=== PATIENT | male | born 1975 | race African-American/Black ===

== ENCOUNTER 2017-01-02 19:45 | Emergency (ER) | payer SELFPAY ==
[~2017-01-02] VITALS: Ht 175.3 cm; Wt 74.8 kg
--- NOTE | ~2017-01-02 | CR181 ---
[facility] A Service of [facility] RADIOLOGY TEXT RESULTS PATIENT: WILL PERRY LOCATION: [facility] : 75 UNIT #: [id number] AGE: [address]: Georgia Lozada APRN SEX: M ORDER DR: [id number] [facility] [address] [place], [place] [address] [id number] MR#: [id number] Acc #: [id number] NAME: WILL PERRY : 1975 SEX: M STUDY DATE/TIME: 01/02/2017 21:13 UNIT: [facility] ROOM: STUDY DESCRIPTION: CR Lumbar Spine 2 or 3 Views Attending Physician: Georgia Lozada A.P.R.N. Ordering Physician: Georgia Lozada A.P.R.N. Primary Care Physician: Jorge L Carey M.D. MEDICAL IMAGING REPORT This report is preliminary unless electronic signature is present EXAM Lumbar spine HISTORY Right lower back pain radiates to both legs causing numbness for 3 weeks. No known injury. COMMENT AP lateral lumbosacral views lumbar spine are reviewed. No previous. Sagittal alignment is normal. Probably mild loss of disc height at L5-S1 with some minor endplate spondylosis. No acute fracture or bone destruction. IMPRESSION Mild plain film evidence for degenerative disease. If more information is needed and the patient is a candidate this is best pursued with a followup MRI of the lumbar spine. Dictated by... Vickie Garnett M.D. THIS IS AN ELECTRONICALLY VERIFIED REPORT Vickie Garnett M.D. at 01/03/2017 2:54 PM ANGY/davon TD: 01/03/2017 03:30 JOB #: [id number] MEDICAL IMAGING REPORT Page 1 of 1 COPY
[~2017-01-02 19:45] MED LIST: CARAFATE1 G PO; CERTAGEN PO; CIPRO PO; FLAGYL PO; PERCOCET5/325 PO; PRILOSEC PO; PROTONIX PO; VICODIN 5/500 T1 TAB PO; ZOFRAN PO
== END 2017-01-02 22:18 | disposition home or self-care (01) ==
LOC: CED 19:45 → CFTX 19:45
DX: M54.5 Low back pain (principal); R56.9 Unspecified convulsions; F17.210 Nicotine dependence, cigarettes, uncomplicated
CPT/HCPCS: 72100; 96372; 99283; J1885